=== PATIENT | female | born 1985 | race Asian ===

== ENCOUNTER 2019-01-06 00:06 | Emergency (ER) | payer BC ==
[~2019-01-06] VITALS: Ht 152.4 cm; Wt 59.9 kg
[2019-01-06 00:18] VITALS: Ht 152.4 cm; Wt 59.9 kg
[2019-01-06 02:31] VITALS: BP 107/63
== END 2019-01-06 02:31 | disposition home or self-care (01) ==
LOC: ED 00:06
DX: O26.893 Other specified pregnancy related conditions, third trimester (principal); R10.30 Lower abdominal pain, unspecified
CPT/HCPCS: Q0092